=== PATIENT | male | born 1965 | race Caucasian/White ===

== ENCOUNTER 2018-08-12 09:16 | Day surgery (SDC) | payer OTHER ==
[2018-08-12 10:10] LABS: MPV 9.1 fL (7.6-11.3)
[2018-08-12 10:13] LABS: Platelet Estimate ADEQ
[2018-08-12 10:18] LABS: Protime INR 1.15
[2018-08-12] MEDS ORDERED: NA CHLORIDE 0.9% 1,000 ML ONE (10:20)
[2018-08-12] MEDS ORDERED: MIDAZOLAM HCL 2 MG/2 ML INJ ONE (10:51)
[2018-08-12] MEDS ORDERED: FENTANYL CITR 100 MCG/2 ML ONE (10:51)
--- NOTE | 2018-08-12 12:04 | RAD REPORT ---
EXAM DESCRIPTION: US - Liver Biopsy Proceduree - 08/12/2018 11:45 am CLINICAL HISTORY: Liver masses COMPARISON: Rad Therapy [facility] Neck dated 08/07/2018; Ct Skull/Thigh dated 07/24/2018; Soft Tissue Neck W/Contr dated 07/02/2018; Chest Abdomen W Con dated 07/02/2018 FINDINGS: Preoperative diagnosis: Multiple liver masses, suspect metastatic disease.. Post operative diagnosis: Same. Conscious Sedation: 45 minutes of IV conscious sedation utilizing fentanyl and midazolam. Fluoroscopy time: None Contrast used: None Estimated blood loss: Minimal Specimens:5 x 20 gauge 1 cm samples. The right abdomen was prepped and draped in the usual sterile fashion. 1% lidocaine was infiltrated i nto the subcutaneous tissues for local anesthesia. Real time ultrasound scanning of the right lobe li hema demonstrated several masses, the most accessible in the inferior left lobe measuring 4.4 x 2.4 cm .. Under ultrasound guidance, using a 20-gauge, 6 cm long, 1 cm throw core biopsy gun, 5 specimens we re obtained of this lesion and sent to pathology for evaluation. Initial touch prep showed suspicious cells. There were no complications. IMPRESSION: Successful ultrasound-guided focal liver biopsy inferior left lobe hepatic mass. 45 minutes IV conscious sedation was utilized.
[2018-08-12] MEDS ORDERED: HYDROCODONE/APAP 7.5/325 MG TAB ONE (12:20)
== END 2018-08-12 14:57 | disposition home or self-care (01) ==
LOC: DS 09:16
PROVIDERS: ATTEND Internal Medicine Gastroenterology
DX: C78.7 Secondary malignant neoplasm of liver and intrahepatic bile duct (principal); C14.0 Malignant neoplasm of pharynx, unspecified; C02.9 Malignant neoplasm of tongue, unspecified; K74.60 Unspecified cirrhosis of liver; I10 Essential (primary) hypertension; K21.0 Gastro-esophageal reflux disease with esophagitis; F17.200 Nicotine dependence, unspecified, uncomplicated; Z85.038 Personal history of other malignant neoplasm of large intestine; Z95.5 Presence of coronary angioplasty implant and graft
CPT/HCPCS: 36415; 47000; 85049; 85610; 85730; 88305; 88333; 88334; J2250; J3010; J7030

== ENCOUNTER 2018-08-22 07:41 | Day surgery (SDC) | payer OTHER ==
[2018-08-20 16:35] LABS: Absolute Lymphocytes (CBC) 1.8 K/uL (0.7-4.9); Absolute Monocytes 0.8 K/uL (0.1-1.3); Absolute Neutrophil 8.1 K/uL (1.8-8.0); Basophils % 1.2 % (0-1.3); Eosinophils % 1.9 % (0-4.4); Hematocrit 41.2 % (39.6-49.0); Lymphocytes % 16.3 % (15.3-44.8); MCH 31.9 pg (27.0-35.0); MCV 93.5 fL (80-100); MPV 9.9 fL (7.6-11.3); Monocytes % 7.6 % (3.3-12.3)
[2018-08-20 17:04] LABS: Platelet Estimate ADEQ; Platelets, Giant FEW; Toxic Granulation NOTED
[2018-08-20 17:05] LABS: Blood Morphology Comment NOTED (NOT SEEN); Hypochromasia 1+; Urine White Blood Cell Casts OK
[2018-08-22] MEDS ORDERED: Ringers Lactate 1,000 ML IV ONE (08:53)
[2018-08-22] MEDS ORDERED: CEFAZOLIN/SWI 1gm 1 GM/10 ML SYR ONE (08:53)
[2018-08-22] MEDS ORDERED: HEPARIN 5000 UNIT/ML 1 ML VIAL ONE (09:29)
[2018-08-22] MEDS ORDERED: NS 0.9% VIAL 20 ML ONE (09:29)
[2018-08-22] MEDS ORDERED: LIDOCAINE 1% MPF 30 ML VIAL ONE (09:30)
[2018-08-22] MEDS ORDERED: ONDANSETRON HCL 40 MG/20 ML VIAL ONE (10:18)
[2018-08-22] MEDS ORDERED: LIDOCAINE 2% MPF 5 ML VIAL ONE (10:18)
[2018-08-22] MEDS ORDERED: MIDAZOLAM HCL 2 MG/2 ML INJ ONE (10:18)
[2018-08-22] MEDS ORDERED: FENTANYL CITR 100 MCG/2 ML ONE (10:18)
[2018-08-22] MEDS ORDERED: PROPOFOL 200 MG/20 ML VIAL IV ONE ×2 (10:18→10:53)
[2018-08-22] MEDS: MORPHINE 4 MG/ML SYR ONE ×3 (11:21→11:42)
[2018-08-22] MEDS ORDERED: MORPHINE 4 MG/ML SYR ONE (12:00)
--- NOTE | 2018-08-22 12:27 | RAD REPORT ---
EXAM DESCRIPTION: RAD - Chest Single View - 08/22/2018 12:02 pm CLINICAL HISTORY: Device placement central venous line placement COMPARISON: none FINDINGS: A central venous line has been inserted with its tip in the distal superior vena cava. A pneumothorax is not seen. The proximal aspect of the line appears to make a loop within the left neck . The lungs appear clear of acute infiltrate. The heart is normal size. Left lung bases not included on the film and is not evaluated IMPRESSION: PICC line with its tip in the distal superior vena cava
--- NOTE | 2018-08-22 12:32 | RAD REPORT ---
EXAM DESCRIPTION: RAD - Fluoroscopy <1 Hour - 08/22/2018 12:02 pm CLINICAL HISTORY: Venous catheter insertion. PORT A CATH COMPARISON: No comparisons FINDINGS: Fluoroscopic imaging is submitted from placement of a venous catheter. Details of the pro cedure not available. Fluoroscopy time: 0.1 minutes
[2018-08-22] MEDS ORDERED: HYDROCODONE/APAP 7.5/325 MG TAB ONE (12:56)
--- NOTE | 2018-08-22 22:56 | OP ---
Date of Procedure: 06/22/2018 Surgeon: Jose Chung MD Preoperative Diagnosis: Head and neck cancer. Postoperative Diagnosis: Head and neck cancer. Procedure: Left IJ Port-A-Cath placement, interpretation of intraoperative fluoroscopy. Estimated Blood Loss: Minimal. Specimen: None. Findings: Normal anatomy. Anesthesia: MAC. Complications: None. Disposition: The patient tolerated the procedure in stable condition and taken to recovery in good g eneral condition. Description Of Procedure: The patient was brought to the OR and placed in supine position. MAC anes thesia was begun. The patient was prepped and draped in usual sterile fashion. Lidocaine 1% was inf iltrated locally. An 18-gauge needle was used to access the left IJ vein. Guidewire was passed. Fl uoroscopy was used to confirm location. Then, a 3-cm counterincision was made in the left anterior c hest. Subcutaneous tissue was divided, pocket was created, and tunneling device was used to tunnel t he catheter between the 2 wounds. Then, Seldinger technique was used and tip of the catheter was martina heidi in the SVC under fluoroscopy. Then, catheter was cut to appropriate size, attached to the Port-A -Cath device. The Port-A-Cath device was attached to subcutaneous tissue with 3-0 Vicryl. A 3-0 chr omic was used to reapproximate the subcutaneous tissue and close the skin. Catheter was flushed with heparin and packed with heparin. Sterile dressing was applied. The patient was awakened and taken to recovery in good general condition. Discharge Note: The patient will get a chest x-ray in the recovery if okay. The patient will be dis charged to home. Disposition: Home. Condition: Stable. Discharge Instructions: Resume home meds and diet. Activity as tolerated. No heavy lifting. Remov e outer dressing in 2 days. Shower, keep wound clean and dry. Follow up in my office in 2 weeks, [facility], [place]. Keep Steri-Strips on at all times. Tylenol No. 3, 1 tablet p.o. q.4 p.r.n. p ain. /MODL Voice ID: [id number] Report ID: [id number]
== END 2018-08-22 13:25 | disposition home or self-care (01) ==
LOC: OR 07:41
PROVIDERS: ATTEND Surgery
PROC: 05HN33Z Insertion of Infusion Device into Left Internal Jugular Vein, Percutaneous Approach (ICD-10-PCS; principal; 2018-08-22 09:15)
DX: C14.0 Malignant neoplasm of pharynx, unspecified (principal); C78.7 Secondary malignant neoplasm of liver and intrahepatic bile duct; J44.9 Chronic obstructive pulmonary disease, unspecified; F17.200 Nicotine dependence, unspecified, uncomplicated; Z85.038 Personal history of other malignant neoplasm of large intestine
CPT/HCPCS: 36415; 36561; 71045; 85025; C1788; J0690; J1644 ×2; J2250; J2405; J2704 ×2; 76000; J3010